=== PATIENT | female | born 1995 | race Caucasian/White ===

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

== ENCOUNTER → 2017-09-07 | Outpatient (CLI) | payer OTHER ==
--- NOTE | 2017-09-03 09:07 | US ---
EXAMINATION TYPE: US gallbladder DATE OF EXAM: 09/03/2017 COMPARISON: NONE CLINICAL HISTORY: R10.84 abd pain. Nausea, abdominal pain. Difficult and limited exam due to overlyin g bowel gas EXAM MEASUREMENTS: Liver Length: 12.5 cm Gallbladder Wall: 0.2 cm CBD: 0.4 cm Right Kidney: 10.0 x 4.6 x 4.5 cm Pancreas: Obscured by bowel gas, visualized portions show no abnormality Liver: wnl Gallbladder: No stones or sludge visualized Evidence for sonographic Serrano's sign: No CBD: wnl as visualized, distal portion is obscured by bowel gas Right Kidney: Limited visualization due to overlying bowel gas. Visualized portions show no hydronep hrosis, no cystic or solid mass. IMPRESSION: 1. No acute process.
--- NOTE | 2017-09-03 13:03 | FL ---
EXAMINATION: Upper GI examination DATE: 09/03/2017 CLINICAL INDICATION: 22 year-old female with abdominal pain and nausea, weakness COMPARISON: None Total Fluoroscopy Time: 1 minute 13 seconds. Fluoroscopy rate was decreased for this patient. Last i mage hold save screens were primarily utilized to further decrease radiation dose. Total images: 31. FINDINGS: The esophagus has a normal course, caliber, motility and mucosa. No hiatal hernia is identified. There is no gastroesophageal reflux identified during Valsalva and positional maneuvers. The stomach and duodenum are free of any persistent filling defect and demonstrate a normal mucosal p attern. IMPRESSION: Normal upper GI examination.
== END | disposition home or self-care (01) ==
LOC: RADUSMAIN 08:30
PROVIDERS: ATTEND Family Medicine
DX: R10.84 Generalized abdominal pain (principal)
CPT/HCPCS: 74240; 76705

== ENCOUNTER 2017-09-11 13:33 | Inpatient (IN) | payer OTHER ==
[2017-09-11] MEDS ORDERED: SODIUM CHLORIDE 0.9% 2,000 ML IV ONE (14:29)
[2017-09-11] MEDS ORDERED: SODIUM CHLORIDE 0.9% 1,000 ML IV STA (14:29)
[2017-09-11] MEDS ORDERED: IOPAMIDOL-300 CONTRAST 30 ML VIAL (ORAL USE) PO PRN (14:31)
[2017-09-11] MEDS ORDERED: RX INFO: IV CONTRAST WAS GIVEN 1 EACH MISC MISCELLANE PRN (14:31)
[2017-09-11 14:41] LABS: Anisocytosis Slight; Basophils # (A) 0.1 k/uL (0-0.2); Basophils % (A) 1 %; Eosinophils # (A) 0.1 k/uL (0-0.7); Eosinophils % (A) 1 %; HCT 42.3 % (34.0-46.0); HGB 12.3 gm/dL (11.4-16.0); Hypochromasia Marked; Lymphocytes % (A) 20 %; MCH 20.4 pg (25.0-35.0); MCHC 29.2 g/dL (31.0-37.0); Mean Platelet Volume 7.9; Microcytosis Marked; Monocytes # (A) 0.7 k/uL (0-1.0); Monocytes % (A) 7 %; Neutrophils # (A) 7.1 k/uL (1.3-7.7); Neutrophils % (A) 70 %; Platelet Count 314 k/uL (150-450); Poikilocytosis Slight; RBC 6.04 m/uL (3.80-5.40); WBC 10.2 k/uL (4.0-11.0)
[2017-09-11 14:53] LABS: ALT 10 U/L (9-52); AST 8 U/L (14-36); Albumin 4.6 g/dL (3.5-5.0); Alkaline Phosphatase 104 U/L (38-126); Amylase 133 U/L (30-110); Blood Urea Nitrogen 8 mg/dL (7-17); Calcium 9.2 mg/dL (8.4-10.2); Chloride 107 mmol/L (98-107); Glucose 362 mg/dL (74-99); Lipase 136 U/L (23-300); Potassium 3.3 mmol/L (3.5-5.1); Sodium 139 mmol/L (137-145); Total Bilirubin 0.3 mg/dL (0.2-1.3); Total Protein 7.5 g/dL (6.3-8.2)
[2017-09-11 14:55] LABS: Partial Thromboplastin Time 25.2 sec (22.0-30.0); Prothrombin Time 9.9 sec (9.0-12.0)
[2017-09-11 14:59] LABS: Anion Gap 25 mmol/L
--- NOTE | 2017-09-11 15:00 | ED ---
Abdominal Pain HPI - General Chief Complaint: Abdominal Pain Stated Complaint: Abd Pain Time Seen by Provider: 09/11/17 14:15 Source: patient, family, RN notes reviewed, old records reviewed Mode of arrival: ambulatory Limitations: no limitations - History of Present Illness Initial Comments: This is a 22-year-old female with a benign past medical history states for the past 3 weeks she has had upper abdominal pain is been burning in nature currently she states is 4/10 in severity nausea without vomiting also she states she's had about a 20 pound weight loss. Time she states she cannot eat is up and drinking fluids very well. She states she has had ultrasound and upper GI which really didn't show anything specific. She was scheduled to have a CT the abdomen and pelvis today but felt very weak and her dad brought her in because of how she was feeling. No fevers chills no sweats no dysuria no hematuria she has had apparently a black colored bowel movements recently. She denies being sexually active. Vaginal discharges. No other modifying symptoms or complaints at this time MD Complaint: abdominal pain, other - Related Data Home Medications Medication Instructions Recorded Confirmed Omeprazole 20 mg PO BID 09/11/17 09/11/17 Allergies Allergy/AdvReac Type Severity Reaction Status Date / Time No Known Allergies Allergy Verified 09/11/17 14:02 Review of Systems ROS Statement: Those systems with pertinent positive or pertinent negative responses have been documented in the HPI. ROS Other: All systems not noted in ROS Statement are negative. Past Medical History Past Medical History: No Reported History History of Any Multi-Drug Resistant Organisms: None Reported Past Surgical History: No Surgical Hx Reported Past Psychological History: Anxiety, Depression Smoking Status: Never smoker Past Alcohol Use History: None Reported Past Drug Use History: None Reported General Exam - General Exam Comments Initial Comments: This is a well-developed well-nourished awake alert oriented 3 female Limitations: no limitations General appearance: alert, lethargic Head exam: Present: atraumatic, normocephalic, normal inspection Eye exam: Present: normal appearance, PERRL, EOMI. Absent: scleral icterus, conjunctival injection, periorbital swelling ENT exam: Present: mucous membranes dry Neck exam: Present: normal inspection. Absent: tenderness, meningismus, lymphadenopathy Respiratory exam: Present: normal lung sounds bilaterally. Absent: respiratory distress, wheezes, rales, rhonchi, stridor Cardiovascular Exam: Present: normal rhythm, tachycardia, normal heart sounds. Absent: systolic murmur, diastolic murmur, rubs, gallop, clicks GI/Abdominal exam: Present: soft, normal bowel sounds. Absent: distended, tenderness, guarding, rebound, rigid Extremities exam: Present: normal inspection, full ROM, normal capillary refill. Absent: tenderness, pedal edema, joint swelling, calf tenderness Back exam: Present: normal inspection Neurological exam: Present: alert, oriented X3, CN II-XII intact Psychiatric exam: Present: normal mood, flat affect Skin exam: Present: warm, dry, intact, pallor. Absent: rash Course Vital Signs 09/11/17 13:54 Temperature 98.8 F Pulse Rate 120 H Respiratory 18 Rate Blood Pressure 138/85 O2 Sat by Pulse 98 Oximetry - Reevaluation(s) Reevaluation #1: 09/11/17 15:58 Reevaluation the patient reveals no improvement thus far I did perform a rectal exam with a female nurse, Jair, lori no gross blood Hemoccult pending Reevaluation #2: 09/11/17 15:59 I did discuss the findings with the patient and her dad regarding the initial findings on lab work does appear the patient is a new-onset diabetic she does have evidence of DKA. She will require admission CAT scan currently is pending. Medical Decision Making - Lab Data Result diagrams: 09/11/17 14:31 09/11/17 14:31 Lab Results 09/11/17 09/11/17 09/11/17 Range/Units 14:31 14:31 14:31 WBC 10.2 (4.0-11.0) k/uL RBC 6.04 H (3.80-5.40) m/uL Hgb 12.3 (11.4-16.0) gm/dL Hct 42.3 (34.0-46.0) % MCV 70.0 L (80.0-100.0) fL MCH 20.4 L (25.0-35.0) pg MCHC 29.2 L (31.0-37.0) g/dL RDW 18.0 H (11.5-15.5) % Plt Count 314 (150-450) k/uL Neutrophils % 70 % Lymphocytes % 20 % Monocytes % 7 % Eosinophils % 1 % Basophils % 1 % Neutrophils # 7.1 (1.3-7.7) k/uL Lymphocytes # 2.0 (1.0-4.8) k/uL Monocytes # 0.7 (0-1.0) k/uL Eosinophils # 0.1 (0-0.7) k/uL Basophils # 0.1 (0-0.2) k/uL Hypochromasia Marked Poikilocytosis Slight Anisocytosis Slight Microcytosis Marked PT (9.0-12.0) sec INR (<1.2) APTT (22.0-30.0) sec Sodium 139 (137-145) mmol/L Potassium 3.3 L (3.5-5.1) mmol/L Chloride 107 (98-107) mmol/L Carbon Dioxide 7 L* (22-30) mmol/L Anion Gap 25 mmol/L BUN 8 (7-17) mg/dL Creatinine 0.50 L (0.52-1.04) mg/dL Est GFR (CKD-EPI)AfAm >90 (>60 ml/min/1.73 sqM) Est GFR (CKD-EPI)NonAf >90 (>60 ml/min/1.73 sqM) Glucose 362 H (74-99) mg/dL Calcium 9.2 (8.4-10.2) mg/dL Magnesium (1.6-2.3) mg/dL Total Bilirubin 0.3 (0.2-1.3) mg/dL AST 8 L (14-36) U/L ALT 10 (9-52) U/L Alkaline Phosphatase 104 (38-126) U/L Total Creatine Kinase <20 L (30-135) U/L CK-MB (CK-2) 0.4 (0.0-2.4) ng/mL CK-MB (CK-2) Rel Index Total Protein 7.5 (6.3-8.2) g/dL Albumin 4.6 (3.5-5.0) g/dL Amylase 133 H (30-110) U/L Lipase 136 (23-300) U/L Urine Color Urine Appearance (Clear) Urine pH (5.0-8.0) Ur Specific [place] (1.001-1.035) Urine Protein (Negative) Urine Glucose (UA) (Negative) Urine Ketones (Negative) Urine Blood (Negative) Urine Nitrite (Negative) Urine Bilirubin (Negative) Urine Urobilinogen (<2.0) mg/dL Ur Leukocyte Esterase (Negative) Urine RBC (0-5) /hpf Urine WBC (0-5) /hpf Ur Squamous Epith Cells (0-4) /hpf Granular Casts (0) /lpf Urine Mucus (None) /hpf Urine HCG, Qual (Not Detectd) Stool Occult Blood (Negative) Acetone, Qual (Negative) Blood Type Blood Type Recheck Antibody Screen Spec Expiration Date 09/11/17 09/11/17 09/11/17 Range/Units 14:31 14:31 14:31 WBC (4.0-11.0) k/uL RBC (3.80-5.40) m/uL Hgb (11.4-16.0) gm/dL Hct (34.0-46.0) % MCV (80.0-100.0) fL MCH (25.0-35.0) pg MCHC (31.0-37.0) g/dL RDW (11.5-15.5) % Plt Count (150-450) k/uL Neutrophils % % Lymphocytes % % Monocytes % % Eosinophils % % Basophils % % Neutrophils # (1.3-7.7) k/uL Lymphocytes # (1.0-4.8) k/uL Monocytes # (0-1.0) k/uL Eosinophils # (0-0.7) k/uL Basophils # (0-0.2) k/uL Hypochromasia Poikilocytosis Anisocytosis Microcytosis PT 9.9 (9.0-12.0) sec INR 1.0 (<1.2) APTT 25.2 (22.0-30.0) sec Sodium (137-145) mmol/L Potassium (3.5-5.1) mmol/L Chloride (98-107) mmol/L Carbon Dioxide (22-30) mmol/L Anion Gap mmol/L BUN (7-17) mg/dL Creatinine (0.52-1.04) mg/dL Est GFR (CKD-EPI)AfAm (>60 ml/min/1.73 sqM) Est GFR (CKD-EPI)NonAf (>60 ml/min/1.73 sqM) Glucose (74-99) mg/dL Calcium (8.4-10.2) mg/dL Magnesium (1.6-2.3) mg/dL Total Bilirubin (0.2-1.3) mg/dL AST (14-36) U/L ALT (9-52) U/L Alkaline Phosphatase (38-126) U/L Total Creatine Kinase (30-135) U/L CK-MB (CK-2) (0.0-2.4) ng/mL CK-MB (CK-2) Rel Index Total Protein (6.3-8.2) g/dL Albumin (3.5-5.0) g/dL Amylase (30-110) U/L Lipase (23-300) U/L Urine Color Urine Appearance (Clear) Urine pH (5.0-8.0) Ur Specific [place] (1.001-1.035) Urine Protein (Negative) Urine Glucose (UA) (Negative) Urine Ketones (Negative) Urine Blood (Negative) Urine Nitrite (Negative) Urine Bilirubin (Negative) Urine Urobilinogen (<2.0) mg/dL Ur Leukocyte Esterase (Negative) Urine RBC (0-5) /hpf Urine WBC (0-5) /hpf Ur Squamous Epith Cells (0-4) /hpf Granular Casts (0) /lpf Urine Mucus (None) /hpf Urine HCG, Qual (Not Detectd) Stool Occult Blood (Negative) Acetone, Qual Positive (Negative) Blood Type O Positive Blood Type Recheck No Antibody Screen NEGATIVE Spec Expiration Date 09/14/2017 - 233009/11/17 09/11/17 09/11/17 Range/Units 14:31 15:15 15:15 WBC (4.0-11.0) k/uL RBC (3.80-5.40) m/uL Hgb (11.4-16.0) gm/dL Hct (34.0-46.0) % MCV (80.0-100.0) fL MCH (25.0-35.0) pg MCHC (31.0-37.0) g/dL RDW (11.5-15.5) % Plt Count (150-450) k/uL Neutrophils % % Lymphocytes % % Monocytes % % Eosinophils % % Basophils % % Neutrophils # (1.3-7.7) k/uL Lymphocytes # (1.0-4.8) k/uL Monocytes # (0-1.0) k/uL Eosinophils # (0-0.7) k/uL Basophils # (0-0.2) k/uL Hypochromasia Poikilocytosis Anisocytosis Microcytosis PT (9.0-12.0) sec INR (<1.2) APTT (22.0-30.0) sec Sodium (137-145) mmol/L Potassium (3.5-5.1) mmol/L Chloride (98-107) mmol/L Carbon Dioxide (22-30) mmol/L Anion Gap mmol/L BUN (7-17) mg/dL Creatinine (0.52-1.04) mg/dL Est GFR (CKD-EPI)AfAm (>60 ml/min/1.73 sqM) Est GFR (CKD-EPI)NonAf (>60 ml/min/1.73 sqM) Glucose (74-99) mg/dL Calcium (8.4-10.2) mg/dL Magnesium 1.9 (1.6-2.3) mg/dL Total Bilirubin (0.2-1.3) mg/dL AST (14-36) U/L ALT (9-52) U/L Alkaline Phosphatase (38-126) U/L Total Creatine Kinase (30-135) U/L CK-MB (CK-2) (0.0-2.4) ng/mL CK-MB (CK-2) Rel Index Total Protein (6.3-8.2) g/dL Albumin (3.5-5.0) g/dL Amylase (30-110) U/L Lipase (23-300) U/L Urine Color Light Yellow Urine Appearance Clear (Clear) Urine pH 5.5 (5.0-8.0) Ur Specific [place] 1.026 (1.001-1.035) Urine Protein 1+ H (Negative) Urine Glucose (UA) 4+ H (Negative) Urine Ketones 4+ H (Negative) Urine Blood Trace H (Negative) Urine Nitrite Negative (Negative) Urine Bilirubin Negative (Negative) Urine Urobilinogen <2.0 (<2.0) mg/dL Ur Leukocyte Esterase Negative (Negative) Urine RBC 4 (0-5) /hpf Urine WBC 7 H (0-5) /hpf Ur Squamous Epith Cells <1 (0-4) /hpf Granular Casts 20 (0) /lpf Urine Mucus Rare H (None) /hpf Urine HCG, Qual Not Detected (Not Detectd) Stool Occult Blood (Negative) Acetone, Qual (Negative) Blood Type Blood Type Recheck Antibody Screen Spec Expiration Date 09/11/17 Range/Units 15:53 WBC (4.0-11.0) k/uL RBC (3.80-5.40) m/uL Hgb (11.4-16.0) gm/dL Hct (34.0-46.0) % MCV (80.0-100.0) fL MCH (25.0-35.0) pg MCHC (31.0-37.0) g/dL RDW (11.5-15.5) % Plt Count (150-450) k/uL Neutrophils % % Lymphocytes % % Monocytes % % Eosinophils % % Basophils % % Neutrophils # (1.3-7.7) k/uL Lymphocytes # (1.0-4.8) k/uL Monocytes # (0-1.0) k/uL Eosinophils # (0-0.7) k/uL Basophils # (0-0.2) k/uL Hypochromasia Poikilocytosis Anisocytosis Microcytosis PT (9.0-12.0) sec INR (<1.2) APTT (22.0-30.0) sec Sodium (137-145) mmol/L Potassium (3.5-5.1) mmol/L Chloride (98-107) mmol/L Carbon Dioxide (22-30) mmol/L Anion Gap mmol/L BUN (7-17) mg/dL Creatinine (0.52-1.04) mg/dL Est GFR (CKD-EPI)AfAm (>60 ml/min/1.73 sqM) Est GFR (CKD-EPI)NonAf (>60 ml/min/1.73 sqM) Glucose (74-99) mg/dL Calcium (8.4-10.2) mg/dL Magnesium (1.6-2.3) mg/dL Total Bilirubin (0.2-1.3) mg/dL AST (14-36) U/L ALT (9-52) U/L Alkaline Phosphatase (38-126) U/L Total Creatine Kinase (30-135) U/L CK-MB (CK-2) (0.0-2.4) ng/mL CK-MB (CK-2) Rel Index Total Protein (6.3-8.2) g/dL Albumin (3.5-5.0) g/dL Amylase (30-110) U/L Lipase (23-300) U/L Urine Color Urine Appearance (Clear) Urine pH (5.0-8.0) Ur Specific [place] (1.001-1.035) Urine Protein (Negative) Urine Glucose (UA) (Negative) Urine Ketones (Negative) Urine Blood (Negative) Urine Nitrite (Negative) Urine Bilirubin (Negative) Urine Urobilinogen (<2.0) mg/dL Ur Leukocyte Esterase (Negative) Urine RBC (0-5) /hpf Urine WBC (0-5) /hpf Ur Squamous Epith Cells (0-4) /hpf Granular Casts (0) /lpf Urine Mucus (None) /hpf Urine HCG, Qual (Not Detectd) Stool Occult Blood Negative (Negative) Acetone, Qual (Negative) Blood Type Blood Type Recheck Antibody Screen Spec Expiration Date Critical Care Time Critical Care Time: Yes Critical Care Time: 32 minutes of critical care time which includes the initial history physical labs x-rays several reevaluation the patient. Review of old charting. Discussion with the patient regarding the findings. Discussed with the admitting physician admission orders and documentation of the above Disposition Clinical Impression: Diabetic ketoacidosis, Abdominal pain, Dehydration, Hypokalemia Disposition: ADMITTED IP TO THIS [facility] Condition: Stable Referrals: Bo Talamantes MD [Primary Care Provider] - 1-2 days
[2017-09-11 15:02] LABS: Carbon Dioxide 7 mmol/L (22-30)
[2017-09-11 15:19] LABS: Creatine Kinase <20 U/L (30-135)
[2017-09-11 15:28] LABS: Creatine Kinase MB 0.4 ng/mL (0.0-2.4)
[2017-09-11 15:38] LABS: Appearance,Urine Clear (Clear); Bilirubin,Urine Negative (Negative); Blood,Urine Trace (Negative); Color,Urine Light Yellow; Glucose,Urine (UA) 4+ (Negative); Granular Casts,Urine 20 /lpf (0); Leukocyte Esterase,Urine Negative (Negative); Mucus,Urine Rare /hpf; Nitrite,Urine Negative (Negative); PH, Urine 5.5 (5.0-8.0); Protein,Urine 1+ (Negative); RBC,Urine 4 /hpf (0-5); Specific Gravity,Urine 1.026 (1.001-1.035); Squamous Epithelial Cell,Urine <1 /hpf (0-4); Urobilinogen,Urine <2.0 mg/dL (<2.0); WBC,Urine 7 /hpf (0-5)
[2017-09-11] MEDS ORDERED: Magnesium Replacement Protocol 1 EACH MISC MISCELLANE PRN (15:45)
[2017-09-11] MEDS ORDERED: Potassium Replacement Protocol 1 EACH MISC MISCELLANE PRN ×2 (15:45→16:49)
[2017-09-11] MEDS ORDERED: INSULIN REGULAR BOLUS (FROM DRIP BAG) IV ONE (15:45)
[2017-09-11 15:55] LABS: Ketones,Urine 4+ (Negative)
[2017-09-11] MEDS ORDERED: NALOXONE 0.4 MG/ML 1 ML VIAL IV PRN (16:04)
[2017-09-11] MEDS: SODIUM CHLORIDE 0.9% 1,000 ML IV SCH ×2 (16:43→22:12)
[2017-09-11] MEDS: INSULIN REGULAR 100 UNIT in SODIUM CHLORIDE 0.9% 100 ML IV SCH (16:44)
[2017-09-11 16:46] LABS: Glucose,Whole Blood 288 mg/dL (75-99)
[2017-09-11 17:36] LABS: Glucose,Whole Blood 237 mg/dL (75-99)
[2017-09-11 18:54] LABS: Glucose,Whole Blood 202 mg/dL (75-99)
[2017-09-11 19:59] LABS: Glucose,Whole Blood 185 mg/dL (75-99)
[2017-09-11 20:07] LABS: Anion Gap 18 mmol/L; Blood Urea Nitrogen 6 mg/dL (7-17); Calcium 8.2 mg/dL (8.4-10.2); Chloride 112 mmol/L (98-107); Glucose 179 mg/dL (74-99); Sodium 138 mmol/L (137-145)
[2017-09-11] MEDS: D5-0.45% NACL WITH KCL 20MEQ/L 1,000 ML IV SCH (20:11)
[2017-09-11 20:12] LABS: Carbon Dioxide 8 mmol/L (22-30); Potassium 2.3 mmol/L (3.5-5.1)
[2017-09-11] MEDS: POTASSIUM CHLORIDE ER 20 MEQ TAB.ER PO SCH ×2 (20:12→21:09)
[2017-09-11 20:13] LABS: Phosphorus 1.2 mg/dL (2.5-4.5)
[2017-09-11] MEDS ORDERED: Phosphorus Replacement Protoco 1 EACH MISC MISCELLANE PRN (20:34)
[2017-09-11 20:45] LABS: Glucose,Whole Blood 192 mg/dL (75-99)
[2017-09-11] MEDS ORDERED: SODIUM BICARB 8.4% 50 ML SYR (1 MEQ/ML) IV ONE (20:45)
--- NOTE | 2017-09-11 20:48 | CT ---
EXAMINATION TYPE: CT discontinued procedure DATE OF EXAM: 09/11/2017 COMPARISON: NONE HISTORY: Pain Automated exposure control for dose reduction was used. FINDINGS: Following scanogram the radiologist canceled procedure due to retained barium. IMPRESSION: DISCONTINUED PROCEDURE
[2017-09-11] MEDS: PANTOPRAZOLE 40 MG/10 ML VIAL IVP SCH (21:10)
[2017-09-11 21:47] LABS: Glucose,Whole Blood 211 mg/dL (75-99)
[2017-09-11] MEDS: POTASSIUM PHOSPHATE 10 MMOL in SODIUM CHLORIDE 0.9% 250 ML IV SCH (22:07)
[2017-09-11 22:47] LABS: Glucose,Whole Blood 211 mg/dL (75-99)
[2017-09-12 00:01] LABS: Glucose,Whole Blood 205 mg/dL (75-99)
[2017-09-12 00:27] LABS: Anion Gap 15 mmol/L; Blood Urea Nitrogen 6 mg/dL (7-17); Carbon Dioxide 14 mmol/L (22-30); Chloride 109 mmol/L (98-107); Glucose 181 mg/dL (74-99); Sodium 138 mmol/L (137-145)
[2017-09-12 00:31] LABS: Potassium 2.7 mmol/L (3.5-5.1)
[2017-09-12 00:45] LABS: Glucose,Whole Blood 198 mg/dL (75-99)
[2017-09-12] MEDS: POTASSIUM CHLORIDE ER 20 MEQ TAB.ER PO SCH ×7 (01:05→20:51)
[2017-09-12 01:35] LABS: Glucose,Whole Blood 186 mg/dL (75-99)
[2017-09-12] MEDS: POTASSIUM PHOSPHATE 10 MMOL in SODIUM CHLORIDE 0.9% 250 ML IV SCH ×5 (02:06→14:33)
[2017-09-12] MEDS: D5-0.45% NACL WITH KCL 20MEQ/L 1,000 ML IV SCH ×4 (02:53→23:57)
[2017-09-12 03:00] LABS: Glucose,Whole Blood 176 mg/dL (75-99)
[2017-09-12] MEDS: INSULIN REGULAR 100 UNIT in SODIUM CHLORIDE 0.9% 100 ML IV SCH (03:11)
[2017-09-12 03:35] LABS: Glucose,Whole Blood 162 mg/dL (75-99)
[2017-09-12 04:40] LABS: Glucose,Whole Blood 158 mg/dL (75-99)
[2017-09-12 04:55] LABS: Anion Gap 12 mmol/L; Blood Urea Nitrogen 5 mg/dL (7-17); Calcium 8.3 mg/dL (8.4-10.2); Carbon Dioxide 17 mmol/L (22-30); Chloride 110 mmol/L (98-107); Glucose 145 mg/dL (74-99); Sodium 139 mmol/L (137-145)
[2017-09-12 04:57] LABS: Potassium 3.1 mmol/L (3.5-5.1)
[2017-09-12 05:49] LABS: Glucose,Whole Blood 145 mg/dL (75-99)
[2017-09-12 06:42] LABS: Glucose,Whole Blood 134 mg/dL (75-99)
[2017-09-12 07:55] LABS: Glucose,Whole Blood 149 mg/dL (75-99)
[2017-09-12] MEDS: PANTOPRAZOLE 40 MG/10 ML VIAL IVP SCH (08:11)
[2017-09-12 08:32] LABS: Anion Gap 11 mmol/L; Blood Urea Nitrogen 4 mg/dL (7-17); Calcium 8.6 mg/dL (8.4-10.2); Carbon Dioxide 17 mmol/L (22-30); Chloride 109 mmol/L (98-107); Glucose 140 mg/dL (74-99); Potassium 3.5 mmol/L (3.5-5.1); Sodium 137 mmol/L (137-145)
[2017-09-12 09:45] LABS: Glucose,Whole Blood 306 mg/dL (75-99)
[2017-09-12 10:22] VITALS: BMI 26.4
[2017-09-12 10:40] LABS: Glucose,Whole Blood 317 mg/dL (75-99)
[2017-09-12] MEDS ORDERED: Phosphorus Replacement Protoco 1 EACH MISC MISCELLANE PRN (10:50)
[2017-09-12 11:33] LABS: Glucose,Whole Blood 308 mg/dL (75-99)
[2017-09-12 12:48] LABS: Glucose,Whole Blood 322 mg/dL (75-99)
[2017-09-12 13:51] LABS: Glucose,Whole Blood 306 mg/dL (75-99)
--- NOTE | 2017-09-12 14:05 | PN ---
PROGRESS NOTE CHIEF COMPLAINT: DKA. HISTORY OF PRESENT ILLNESS: This lady is doing better and feeling better. Abdominal pain is gone. PHYSICAL EXAM: CHEST: Clear. The cardiac exam is normal. The abdomen is soft, nontender. IMPRESSION: 1. Abdominal pain-resolved. 2. Diabetic ketoacidosis. 3. New onset diabetes mellitus. PLAN: 1. Treat low phosphorus again. 2. Diabetic education. 3. Set up program for intermediate and long-acting insulin. MMODL / IJN: [id number] /
--- NOTE | 2017-09-12 14:08 | HP ---
HISTORY AND PHYSICAL CHIEF COMPLAINT: Abdominal pain. HISTORY OF PRESENT ILLNESS: This lady was seen several days ago in the office and had been being worked up for epigastric pain without any obvious etiology. She has also had a history of ADHD. She started to develop more discomfort and came to the emergency room. She was found to have elevated blood sugar at 362 with 4+ ketones. CO2 was down to 7. She had no nausea vomiting. Amylase and lipase were normal. This is a new onset of diabetes. REVIEW OF SYSTEMS: She has had no significant headaches, blurry vision, shortness of breath, cough, hemoptysis, murmurs, rheumatic fever, vomiting, hematemesis, melena, hematochezia, jaundice, hematuria, renal disease, diabetes, etc. Past medical history, family history, personal and social histories reveal that she is only on Prilosec. She does have a history of asthma. She does not smoke. She does not drink. PHYSICAL EXAMINATION: Blood pressure is 98/78 with a pulse of 108, respirations of 35 and she is afebrile. In general she appeared well developed, well nourished, no acute distress. Skin color is normal. Skin is warm, dry. Lymph nodes not enlarged. Head, ears, eyes, nose, mouth, and throat were normal and mucous membranes are dry. Chest is clear to auscultation and percussion and cardiac exam demonstrated sinus tachycardia with no murmurs or extra sounds. Abdomen is soft, nontender without visceromegaly or masses. Bowel sounds present. Extremities are normal. Neurologically she is intact. She is admitted to the hospital with diagnoses: 1. New onset type 1 diabetes mellitus. 2. Epigastric pain, etiology unknown. 3. Metabolic acidosis. PLAN: 1. Bed rest. 2. IV fluids. 3. Correct hypokalemia. 4. Correct hypophosphatemia. 5. Diabetic teaching. 6. Insulin management until she is stable and can be discharged. MMODL / IJN: [id number] /
[2017-09-12] MEDS: INSULIN ASPART 100 UNIT/ML 1 ML 10 ML VIAL SQ SCH ×2 (14:26→16:56)
[2017-09-12 14:50] LABS: Glucose,Whole Blood 314 mg/dL (75-99)
[2017-09-12 15:44] LABS: Glucose,Whole Blood 348 mg/dL (75-99)
[2017-09-12 16:39] LABS: Glucose,Whole Blood 313 mg/dL (75-99)
[2017-09-12] MEDS: PANTOPRAZOLE 40 MG TABLET PO SCH (16:56)
[2017-09-12 17:02] LABS: Anion Gap 9 mmol/L; Blood Urea Nitrogen 3 mg/dL (7-17); Calcium 8.4 mg/dL (8.4-10.2); Carbon Dioxide 19 mmol/L (22-30); Chloride 107 mmol/L (98-107); Glucose 288 mg/dL (74-99); Magnesium 1.5 mg/dL (1.6-2.3); Phosphorus 2.6 mg/dL (2.5-4.5); Potassium 3.3 mmol/L (3.5-5.1); Sodium 135 mmol/L (137-145)
[2017-09-12 18:26] LABS: Glucose,Whole Blood 267 mg/dL (75-99)
[2017-09-12] MEDS ORDERED: Potassium Replacement Protocol 1 EACH MISC MISCELLANE PRN (18:44)
[2017-09-12] MEDS ORDERED: Magnesium Replacement Protocol 1 EACH MISC MISCELLANE PRN (18:45)
[2017-09-12] MEDS ORDERED: POTASSIUM CHLORIDE 10 MEQ in WATER FOR INJECTION 1 100ML.BAG IVPB SCH (19:00)
[2017-09-12 19:09] LABS: Glucose,Whole Blood 242 mg/dL (75-99)
[2017-09-12] MEDS: MAGNESIUM SULFATE-D5W PMX 1 GM in DEXTROSE/WATER 1 100ML.BAG IVPB SCH ×2 (19:34→20:51)
[2017-09-12] MEDS: INSULIN DETEMIR 100 UNIT/ML 10 ML VIAL SQ SCH (20:51)
[2017-09-12 20:58] LABS: Glucose,Whole Blood 199 mg/dL (75-99)
[2017-09-12 21:03] LABS: Glucose,Whole Blood 184 mg/dL (75-99)
[2017-09-12 22:26] LABS: Glucose,Whole Blood 148 mg/dL (75-99)
[2017-09-12 23:15] LABS: Glucose,Whole Blood 121 mg/dL (75-99)
[2017-09-13] MEDS: POTASSIUM CHLORIDE ER 20 MEQ TAB.ER PO SCH ×2 (00:23→01:17)
[2017-09-13 02:08] LABS: Glucose,Whole Blood 172 mg/dL (75-99)
[2017-09-13 06:07] LABS: Glucose,Whole Blood 131 mg/dL (75-99)
[2017-09-13 06:52] LABS: Anion Gap 12 mmol/L; Blood Urea Nitrogen 3 mg/dL (7-17); Calcium 8.9 mg/dL (8.4-10.2); Carbon Dioxide 24 mmol/L (22-30); Chloride 107 mmol/L (98-107); Glucose 133 mg/dL (74-99); Magnesium 2.2 mg/dL (1.6-2.3); Potassium 3.9 mmol/L (3.5-5.1); Sodium 143 mmol/L (137-145)
[2017-09-13] MEDS: PANTOPRAZOLE 40 MG TABLET PO SCH ×2 (06:57→17:03)
[2017-09-13] MEDS: INSULIN ASPART 100 UNIT/ML 1 ML 10 ML VIAL SQ SCH ×3 (07:11→17:01)
[2017-09-13 11:40] LABS: Glucose,Whole Blood 159 mg/dL (75-99)
[2017-09-13 16:37] LABS: Glucose,Whole Blood 197 mg/dL (75-99)
[2017-09-13 21:08] LABS: Glucose,Whole Blood 246 mg/dL (75-99)
[2017-09-13] MEDS: INSULIN DETEMIR 100 UNIT/ML 10 ML VIAL SQ SCH (21:44)
[2017-09-14 03:16] LABS: Glucose,Whole Blood 326 mg/dL (75-99)
[2017-09-14] MEDS: INSULIN ASPART 100 UNIT/ML 1 ML 10 ML VIAL SQ SCH ×5 (03:42→12:15)
[2017-09-14 06:05] LABS: Glucose,Whole Blood 176 mg/dL (75-99)
[2017-09-14 06:14] LABS: Anion Gap 9 mmol/L; Blood Urea Nitrogen 5 mg/dL (7-17); Carbon Dioxide 30 mmol/L (22-30); Chloride 105 mmol/L (98-107); Glucose 198 mg/dL (74-99); Phosphorus 3.1 mg/dL (2.5-4.5); Potassium 4.3 mmol/L (3.5-5.1); Sodium 144 mmol/L (137-145)
[2017-09-14] MEDS: PANTOPRAZOLE 40 MG TABLET PO SCH (07:07)
[2017-09-14 08:25] VITALS: RESP 16
[2017-09-14 11:48] VITALS: BP 105/64; PULSE 75; TEMP 97.7
[2017-09-14 12:06] LABS: Glucose,Whole Blood 203 mg/dL (75-99)
--- NOTE | 2017-09-14 18:01 | PN ---
PROGRESS NOTE DATE OF SERVICE: 09/13/17 CHIEF COMPLAINT: Newly diagnosed diabetes mellitus and DKA. HISTORY OF PRESENT ILLNESS: This lady is doing well and sugars coming down. She is handling the insulin will probably go home tomorrow. PHYSICAL EXAM: CHEST: Clear. Cardiac exam is normal. Abdomen is soft, nontender and hydration is improved. IMPRESSION: 1. Diabetic ketoacidosis. 2. Newly diagnosed insulin-dependent diabetes mellitus. PLAN: Probably home tomorrow. MMODL / IJN: [id number] /
--- NOTE | 2017-09-14 19:16 | DS ---
DISCHARGE SUMMARY CHIEF COMPLAINT: Diabetic ketoacidosis. HISTORY OF PRESENT ILLNESS AND PHYSICAL EXAM: Details of this lady's history and physical can be found in the initial workup. LABORATORY STUDIES: While she was in the hospital she had laboratory studies, details of which can be found in the laboratory section of her chart. COURSE IN THE HOSPITAL: After admission, she was placed on bedrest, started on intravenous fluids and IV insulin drip. As anion gap closed, hydration improved and blood sugars were brought down. She was started on diabetic teaching and she was stable enough it was felt that she could go home on the . She will follow up in a few days. We will monitor her blood sugars closely and adjust her insulin further. FINAL DIAGNOSES: 1. Newly diagnosed type 1 insulin dependent diabetes mellitus. 2. Ketoacidosis. OPERATIONS: None. CONSULTATIONS: None. She is improved. CANDIE / ADORE: [id number] /
== END 2017-09-14 15:16 | disposition home or self-care (01) | DRG 639 ==
LOC: EC 13:33 → 6SEL 16:04
PROVIDERS: ADMIT Family Medicine; ATTEND Family Medicine
DX: E10.10 Type 1 diabetes mellitus with ketoacidosis without coma (principal); E83.39 Other disorders of phosphorus metabolism; F90.9 Attention-deficit hyperactivity disorder, unspecified type; E87.6 Hypokalemia; R10.13 Epigastric pain; R00.0 Tachycardia, unspecified; J45.909 Unspecified asthma, uncomplicated; E86.0 Dehydration; Z79.899 Other long term (current) drug therapy
CPT/HCPCS: 36415; 76380; 80048; 80053; 81001; 81025; 82009; 82150; 82272; 82550; 82553; 83036; 83690; 83735; 84100; 84132; 85025; 85610; 85730; 86850; 86900; 86901; 96360; 99291

== ENCOUNTER 2019-01-12 12:08 | Emergency (ER) | payer OTHER ==
[2019-01-12] MEDS ORDERED: LIDOCAINE/EPINEPHR/TETRACAINE 5 ML BOTTLE TOPICAL ONE (12:27)
--- NOTE | 2019-01-12 12:35 | ED ---
Skin/Abscess/FB HPI - General Chief complaint: Skin/Abscess/Foreign Body Stated complaint: Abscess Time Seen by Provider: 01/12/19 12:18 Source: patient, family, RN notes reviewed, old records reviewed Mode of arrival: ambulatory - History of Present Illness Initial comments: Patient is a 23-year-old female, type I diabetic. She presents with an abscess over her lower back and buttocks for the past 3 weeks. Patient reports that his escape continue to get better. Patient reports that she had her father poke it and drain it. She reports it continues to get worse. - Related Data Home Medications Medication Instructions Recorded Confirmed Insulin Lispro [Admelog] See Protocol SQ CONTINUOUS MDD 100 01/12/19 01/12/19 UNITS metFORMIN HCL 1,000 mg PO BID-W/MEALS 01/12/19 01/12/19 Previous Rx's Medication Instructions Recorded HYDROcodone/APAP 5-325MG [[place] 1 tab PO Q6HR PRN 3 Days #12 tab 01/12/19 5-325] Sulfamethox-Tmp 800-160Mg [Bactrim 2 tab PO Q12HR #40 tab 01/12/19 DS 800-160 mg] Allergies Allergy/AdvReac Type Severity Reaction Status Date / Time No Known Allergies Allergy Verified 01/12/19 12:50 Review of Systems ROS Statement: Those systems with pertinent positive or pertinent negative responses have been documented in the HPI. ROS Other: All systems not noted in ROS Statement are negative. Past Medical History Past Medical History: Diabetes Mellitus Additional Past Medical History / Comment(s): anxiety, panic attacks. per pt's father: when pt younger till about age 15 occ episodes of almost passing out if she moved postions to quickly", lt hand-steam burn from work History of Any Multi-Drug Resistant Organisms: None Reported Past Surgical History: No Surgical Hx Reported Past Anesthesia/Blood Transfusion Reactions: No Reported Reaction Additional Past Anesthesia/Blood Transfusion Reaction / Comment(s): never had general aa Past Psychological History: Anxiety, Depression, Panic Disorder, PTSD Smoking Status: Never smoker Past Alcohol Use History: None Reported Past Drug Use History: None Reported - Past Family History Mother Additional Family Medical History / Comment(s): depression Father Family Medical History: Asthma, COPD, Coronary Artery Disease (CAD), Myocardial Infarction ([place]) Additional Family Medical History / Comment(s): x2 mi's, heart stents General Exam - General Exam Comments Initial Comments: 23 year old female, no distress. General appearance: alert, in no apparent distress Head exam: Present: atraumatic, normocephalic, normal inspection Eye exam: Present: normal appearance, PERRL, EOMI. Absent: scleral icterus, conjunctival injection, periorbital swelling ENT exam: Present: normal exam, mucous membranes moist Neck exam: Present: normal inspection. Absent: tenderness, meningismus, lymphadenopathy Respiratory exam: Present: normal lung sounds bilaterally. Absent: respiratory distress, wheezes, rales, rhonchi, stridor Cardiovascular Exam: Present: regular rate, normal rhythm, normal heart sounds. Absent: systolic murmur, diastolic murmur, rubs, gallop, clicks GI/Abdominal exam: Present: soft, normal bowel sounds. Absent: distended, tenderness, guarding, rebound, rigid Extremities exam: Present: normal inspection, full ROM, normal capillary refill, other (abscess over tailbone). Absent: tenderness, pedal edema, joint swelling, calf tenderness Back exam: Present: normal inspection Neurological exam: Present: alert, oriented X3, CN II-XII intact Psychiatric exam: Present: normal affect, normal mood Skin exam: Present: warm, dry, intact, normal color. Absent: rash Course Vital Signs 01/12/19 01/12/19 12:10 13:30 Temperature 98.7 F 98.2 F Pulse Rate 119 H 98 Respiratory 18 20 Rate Blood Pressure 133/84 135/65 O2 Sat by Pulse 100 99 Oximetry Procedures - Incision & Drainage Site: back (buttocks) Size (cm): 5 Anesthetic Used: lidocaine 1% Amount (mLs): 10 I&D Cleaning Method: Chloroprep Scalpel Used: #11 Needle Aspiration Performed?: Yes Irrigation Performed?: Yes I&D Drainage Obtained: Pus, Blood Packing: Iodoform Culture Obtained?: Yes Patient Tolerated Procedure: well, no complications Medical Decision Making - Medical Decision Making 23 year old female presents today with complaints of pilionidal abscess for 3 weeks. Patient is a diabetic. Sugars have been normal. Incision and drainage was completed. 20cc of puss was removed, packing completed. Patient will be started on Bactrim and pain medication. Disucssed surgeon follow up. Disposition Clinical Impression: Pilonidal abscess Disposition: HOME SELF-CARE Condition: Good Instructions (If sedation given, give patient instructions): Abscess Incision and Drainage (ED), Abscess (ED) Additional Instructions: Patient has a follow-up with surgical nurse practitioner in the next 1-2 days. In 2 days Patient should have the packing removed. Take antibiotics and pain meds as prescribed. Rest, remain hydrated. Prescriptions: Sulfamethox-Tmp 800-160Mg [Bactrim DS 800-160 mg] 2 tab PO Q12HR #40 tab HYDROcodone/APAP 5-325MG [[place] 5-325] 1 tab PO Q6HR PRN 3 Days #12 tab PRN Reason: Pain Is patient prescribed a controlled substance at d/c from ED?: Yes If prescribed controlled substance>3 days was MAPS reviewed?: Prescribed <3 Days If opioid is for acute pain is fill amount 7 days or less?: Yes If Rx opioid, was Start Talking consent form obtained?: Yes Referrals: Bo Talamantes MD [Primary Care Provider] - 1-2 days Fani Toledo MD [STAFF PHYSICIAN] - 1-2 days Time of Disposition: 13:25
[2019-01-12] MEDS ORDERED: LIDOCAINE 1% INJ 10MG/ML (20 ML MDV) SQ ONE (13:03)
[2019-01-12 13:42] VITALS: BP 135/65; PULSE 98; RESP 20; TEMP 98.2
== END 2019-01-12 13:30 | disposition home or self-care (01) ==
LOC: EC 12:08
DX: L05.01 Pilonidal cyst with abscess (principal); E10.628 Type 1 diabetes mellitus with other skin complications; Z79.4 Long term (current) use of insulin
CPT/HCPCS: 87070; 87205; 99283; 10080; J2001; 87077; 87186

== ENCOUNTER 2019-01-13 16:29 | Emergency (ER) | payer OTHER ==
[2019-01-13 16:33] VITALS: BP 111/79; PULSE 98; RESP 20; TEMP 98.4
--- NOTE | 2019-01-13 17:29 | ED ---
General Adult HPI - General Chief complaint: Skin/Abscess/Foreign Body Stated complaint: recheck - wound packing Time Seen by Provider: 01/13/19 16:38 Source: patient, RN notes reviewed, old records reviewed Mode of arrival: ambulatory Limitations: no limitations - History of Present Illness Initial comments: Patient is a 23-year-old female presents today for recheck for a pilonidal abscess and wound. Patient reports that she was seen by provider yesterday and I complete incision and drainage. She's been on Keflex and Bactrim for a day and half. She try to follow up with her PCP to have the wound repacked. She does have an appointment scheduled for Thursday with Dr. Henriquez. Patient was concerned to wait longer to have this wound and redress at that time. - Related Data Home Medications Medication Instructions Recorded Confirmed Insulin Lispro [Admelog] See Protocol SQ CONTINUOUS MDD 100 01/12/19 01/12/19 UNITS metFORMIN HCL 1,000 mg PO BID-W/MEALS 01/12/19 01/12/19 Previous Rx's Medication Instructions Recorded HYDROcodone/APAP 5-325MG [[place] 1 tab PO Q6HR PRN 3 Days #12 tab 01/12/19 5-325] Sulfamethox-Tmp 800-160Mg [Bactrim 2 tab PO Q12HR #40 tab 01/12/19 DS 800-160 mg] Allergies Allergy/AdvReac Type Severity Reaction Status Date / Time No Known Allergies Allergy Verified 01/13/19 16:32 Review of Systems ROS Statement: Those systems with pertinent positive or pertinent negative responses have been documented in the HPI. ROS Other: All systems not noted in ROS Statement are negative. Past Medical History Past Medical History: Diabetes Mellitus Additional Past Medical History / Comment(s): anxiety, panic attacks. per pt's father: when pt younger till about age 15 occ episodes of almost passing out if she moved postions to quickly", lt hand-steam burn from work History of Any Multi-Drug Resistant Organisms: None Reported Past Surgical History: No Surgical Hx Reported Past Anesthesia/Blood Transfusion Reactions: No Reported Reaction Additional Past Anesthesia/Blood Transfusion Reaction / Comment(s): never had general aa Past Psychological History: Anxiety, Depression, Panic Disorder, PTSD Smoking Status: Never smoker Past Alcohol Use History: None Reported Past Drug Use History: None Reported - Past Family History Mother Additional Family Medical History / Comment(s): depression Father Family Medical History: Asthma, COPD, Coronary Artery Disease (CAD), Myocardial Infarction ([place]) Additional Family Medical History / Comment(s): x2 mi's, heart stents General Exam - General Exam Comments Initial Comments: 23-year-old female. No distress. Limitations: no limitations General appearance: alert, in no apparent distress Head exam: Present: atraumatic, normocephalic, normal inspection Eye exam: Present: normal appearance, PERRL, EOMI. Absent: scleral icterus, conjunctival injection, periorbital swelling ENT exam: Present: normal exam, mucous membranes moist Neck exam: Present: normal inspection. Absent: tenderness, meningismus, lymphadenopathy Respiratory exam: Present: normal lung sounds bilaterally. Absent: respiratory distress, wheezes, rales, rhonchi, stridor Cardiovascular Exam: Present: regular rate, normal rhythm, normal heart sounds. Absent: systolic murmur, diastolic murmur, rubs, gallop, clicks GI/Abdominal exam: Present: soft, normal bowel sounds. Absent: distended, tenderness, guarding, rebound, rigid Extremities exam: Present: normal inspection, full ROM, normal capillary refill. Absent: tenderness, pedal edema, joint swelling, calf tenderness Back exam: Present: normal inspection, other (Drain over the tailbone. No significant erythema. There is minimal swelling. ) Neurological exam: Present: alert, oriented X3, CN II-XII intact Psychiatric exam: Present: normal affect, normal mood Skin exam: Present: warm, dry, intact, normal color. Absent: rash Course Vital Signs 01/13/19 16:30 Temperature 98.4 F Pulse Rate 98 Respiratory 20 Rate Blood Pressure 111/79 O2 Sat by Pulse 98 Oximetry Medical Decision Making - Medical Decision Making Patient's a 43-year-old female presents for wound repacking and reevaluation. I removed the iodoform packing from the pilonidal abscess. The area was cleansed and repacking was performed. Patient tolerated procedure well. His physician is hopeless surgeon for repacking. She has an appointment scheduled on Thursday. There is no significant erythema and I discussed that it appears that the wound is healing well. Patient agrees to treatment plan will comply. Return parameters were discussed. Disposition Clinical Impression: Encounter for wound re-check Disposition: HOME SELF-CARE Condition: Good Instructions (If sedation given, give patient instructions): Pilonidal Cyst (ED) Additional Instructions: Follow-up with a surgeon on Thursday. Continue your antibiotics as prescribed. Return to the emergency department if any alarming signs or symptoms occur. Is patient prescribed a controlled substance at d/c from ED?: No Referrals: Bo Talamantes MD [Primary Care Provider] - 1-2 days Time of Disposition: 17:29
== END 2019-01-13 17:30 | disposition home or self-care (01) ==
LOC: EC 16:29
DX: Z48.01 Encounter for change or removal of surgical wound dressing (principal); E11.9 Type 2 diabetes mellitus without complications; Z79.4 Long term (current) use of insulin
CPT/HCPCS: 99283

== ENCOUNTER → 2021-01-16 | Outpatient (CLI) | payer OTHER ==
[2021-01-16 13:36] LABS: Appearance,Urine Cloudy (Clear); Bilirubin,Urine Negative (Negative); Blood,Urine Negative (Negative); Color,Urine Yellow; Glucose,Urine (UA) Negative (Negative); Ketones,Urine 1+ (Negative); Leukocyte Esterase,Urine Large (Negative); Mucus,Urine Many /hpf; Nitrite,Urine Negative (Negative); Protein,Urine 1+ (Negative); RBC,Urine 5 /hpf (0-5); Specific Gravity,Urine 1.032 (1.001-1.035); Squamous Epithelial Cell,Urine 14 /hpf (0-4); Urobilinogen,Urine <2.0 mg/dL (<2.0); WBC,Urine 59 /hpf (0-5)
[2021-01-16 20:31] LABS: Basophils # (A) 0.05 X 10*3/uL (0.00-0.10); Basophils % (A) 0.6 %; Eosinophils # (A) 0.22 X 10*3/uL (0.04-0.35); Eosinophils % (A) 2.8 %; HCT 38.7 % (37.2-46.3); HGB 12.2 g/dL (12.0-15.0); Lymphocytes # (A) 2.02 X 10*3/uL (0.90-5.00); Lymphocytes % (A) 25.6 %; MCH 27.4 pg (27.0-32.0); MCHC 31.5 g/dL (32.0-37.0); MCV 86.8 fL (80.0-97.0); Mean Platelet Volume 11.5 fL (9.5-12.2); Monocytes # (A) 0.63 X 10*3/uL (0.20-1.00); Neutrophils # (A) 4.95 X 10*3/uL (1.80-7.70); Neutrophils % (A) 62.7 %; Platelet Count 336 X 10*3/uL (140-440); RBC 4.46 X 10*6/uL (4.10-5.20); RDW 12.3 % (11.5-14.5); WBC 7.89 X 10*3/uL (4.50-10.00)
[2021-01-16 21:43] LABS: Hemoglobin A1C 6.4 % (4.0-6.0)
[2021-01-16 22:32] LABS: Ferritin 25.4 ng/mL (10.0-291.0)
[2021-01-16 22:33] LABS: % Iron Saturation 37.42 (12.00-45.00); African American GFR (CKD) 141.5 (60.0-200.0); Albumin 4.4 g/dL (3.80-4.90); Albumin/Globulin Ratio 2.1 (1.60-3.17); Anion Gap 10.8 mmol/L (4.00-12.00); BUN/Creat Ratio 27.14 Ratio (12.00-20.00); C Reactive Protein 0.8 mg/dL (0.0-0.8); Calcium 9.1 mg/dL (8.7-10.3); Carbon Dioxide 23.2 mmol/L (21.6-31.8); Chol/HDL Ratio 3.79; Globulin 2.1 g/dL (1.6-3.3); LDL Cholesterol,Calculated 99.8 mg/dL (0.0-131.0); Magnesium 1.6 mg/dL (1.5-2.4); Non-African American GFR(CKD) 122.1 (60.0-200.0); Total Bilirubin 0.8 mg/dL (0.3-1.2); Total Protein 6.5 g/dL (6.2-8.2); VLDL Calculation 20.2 mg/dL (5.00-40.00)
[2021-01-16 23:15] LABS: Erythrocyte Sedimentation Rate 17 mm/Hr (0-20)
== END | disposition home or self-care (01) ==
LOC: LABWHC1 12:32
PROVIDERS: ATTEND Internal Medicine
DX: Z00.00 Encounter for general adult medical examination without abnormal findings (principal); D64.9 Anemia, unspecified; E78.5 Hyperlipidemia, unspecified; E11.65 Type 2 diabetes mellitus with hyperglycemia
CPT/HCPCS: 36415; 80053; 80061; 81001; 82306; 82550; 82728; 83036; 83540; 83550; 83735; 84100; 84443; 85025; 85652; 86140

== ENCOUNTER → 2022-03-10 | Outpatient (CLI) | payer OTHER ==
[2022-03-10 23:41] LABS: Basophils # (A) 0.06 X 10*3/uL (0.00-0.10); Basophils % (A) 0.7 %; Eosinophils # (A) 0.21 X 10*3/uL (0.04-0.35); Eosinophils % (A) 2.5 %; HCT 34.7 % (37.2-46.3); HGB 10.3 g/dL (12.0-15.0); Immature Grans, Automated 0.4 %; Lymphocytes # (A) 2.34 X 10*3/uL (0.90-5.00); Lymphocytes % (A) 27.5 %; MCH 22.4 pg (27.0-32.0); MCHC 29.7 g/dL (32.0-37.0); MCV 75.4 fL (80.0-97.0); Mean Platelet Volume 11.7 fL (9.5-12.2); Monocytes # (A) 0.76 X 10*3/uL (0.20-1.00); Monocytes % (A) 8.9 %; NRBC Per 100 WBC 0 /100 WBCS (0.0-0.0); Neutrophils # (A) 5.11 X 10*3/uL (1.80-7.70); Platelet Count 402 X 10*3/uL (140-440); RDW 15.2 % (11.5-14.5); WBC 8.51 X 10*3/uL (4.50-10.00)
[2022-03-10 23:57] LABS: Microalbumin Creatinine Ratio <30 mg/g Creat (0-30); Urine Creatinine 40.4 mg/dL (28.0-217.0)
[2022-03-11 01:26] LABS: Erythrocyte Sedimentation Rate 34 mm/Hr (0-20)
[2022-03-11 01:38] LABS: ALT 23 U/L (8-44); AST 18 U/L (13-35); African American GFR (CKD) 147.9 (60.0-200.0); Albumin 4.5 g/dL (3.8-4.9); Albumin/Globulin Ratio 1.88 (1.60-3.17); Alkaline Phosphatase 125 U/L (41-126); BUN/Creat Ratio 18.67 Ratio (12.00-20.00); Blood Urea Nitrogen 11.2 mg/dL (9.0-27.0); Calcium 9.2 mg/dL (8.7-10.3); Chloride 102 mmol/L (96-109); Creatine Kinase 34 U/L (26-186); Globulin 2.4 g/dL (1.6-3.3); Glucose 194 mg/dL (70-110); Non-African American GFR(CKD) 127.6 (60.0-200.0); Potassium 4.2 mmol/L (3.5-5.5); Sodium 137 mmol/L (135-145); Total Bilirubin <0.15 mg/dL (0.30-1.20); Total Protein 6.9 g/dL (6.2-8.2)
== END | disposition home or self-care (01) ==
LOC: LABWHC1 15:36
PROVIDERS: ATTEND Internal Medicine
DX: E87.8 Other disorders of electrolyte and fluid balance, not elsewhere classified (principal); E78.5 Hyperlipidemia, unspecified; E10.9 Type 1 diabetes mellitus without complications; R80.9 Proteinuria, unspecified; E55.9 Vitamin D deficiency, unspecified
CPT/HCPCS: 36415; 80053; 82043; 82306; 82550; 82570; 83036; 84443; 85025; 85652; 86140

== ENCOUNTER → 2022-03-18 | Outpatient (CLI) | payer OTHER ==
[2022-03-18 18:51] LABS: % Iron Saturation 3.88 (12.00-45.00)
[2022-03-18 23:42] LABS: Urine Alcohol Negative (Negative); Urine Barbiturate Negative (Negative); Urine Cocaine Negative (Negative); Urine Methadone Negative (Negative); Urine Opiates Negative (Negative); Urine Phencyclidine Negative (Negative)
== END | disposition home or self-care (01) ==
LOC: LABWHC1 14:19
PROVIDERS: ATTEND Internal Medicine
DX: E10.9 Type 1 diabetes mellitus without complications (principal); D64.9 Anemia, unspecified; F43.10 Post-traumatic stress disorder, unspecified
CPT/HCPCS: 36415; 80306; 82728; 83540; 83550

== ENCOUNTER → 2022-04-17 | Outpatient (CLI) | payer OTHER ==
--- NOTE | 2022-04-17 12:53 | US ---
EXAMINATION TYPE: US pelvic complete DATE OF EXAM: 04/17/2022 COMPARISON: NONE CLINICAL HISTORY: 26-year-old female N92.0 EXCESSIVE AND FREQUENT MENSTRUATION WITH REG. TECHNIQUE: Transabdominal (TA). Transabdominal sonographic images of the pelvis were acquired. Tra nsvaginal sonographic images were medically necessary to better assess the anatomy. Date of LMP: 04-04-22 FINDINGS: EXAM MEASUREMENTS: Uterus: 8.8 x 4.3 x 5.5 cm Endometrial Stripe: 1.1 cm Right Ovary: 3.3 x 1.9 x 2.1 cm Left Ovary: 3.1 x 2.0 x 2.0 cm 1. Uterus: Anteverted and otherwise wnl 2. Endometrium: wnl 3. Right Ovary: A 1.2 cm dominant follicle or functional cyst is present. 4. Left Ovary: Normal follicular change. 5. Bilateral Adnexa: wnl 6. Posterior cul-de-sac: Mild to moderate cul-de-sac free fluid. IMPRESSION: 1. Endometrial stripe measuring 1.1 cm. This should correspond to the secretory phase of the menstrua l cycle. 2. Normal follicular change in the ovaries. 3. Mild to moderate cul-de-sac free fluid likely physiologic.
== END | disposition home or self-care (01) ==
LOC: RADUSWWP 10:19
PROVIDERS: ATTEND Obstetrics & Gynecology
DX: N92.0 Excessive and frequent menstruation with regular cycle (principal)
CPT/HCPCS: 76856

== ENCOUNTER 2022-07-04 14:53 | Emergency (ER) | payer OTHER ==
[2022-07-04 14:56] VITALS: TEMP 98.2
[2022-07-04] MEDS ORDERED: SODIUM CHLORIDE 0.9% 500 ML 500 ML IV ONE (15:27)
[2022-07-04] MEDS ORDERED: SODIUM CHLORIDE 0.9% 1,000 ML IV ONE (15:27)
--- NOTE | 2022-07-04 15:33 | ED ---
General Adult HPI - General Chief complaint: Recheck/Abnormal Lab/Rx Stated complaint: DKA Time Seen by Provider: 07/04/22 15:00 Source: patient, RN notes reviewed, old records reviewed Mode of arrival: ambulatory Limitations: no limitations - History of Present Illness Initial comments: This is a 27-year-old female who presents emergency Department with a past medical history significant for diabetes. Patient states last night her sugar was 700 today was about 350 and she's feeling nauseated and feels as though she is building of some ketones and she wants to come in and get some fluid and see if we can make her feel better. Patient states she has not begun vomiting. Patient denies any fever chills or cough. Patient denies chest pain difficult breathing shortness of breath. Patient denies any abdominal pain. Patient denies any swelling to the legs. Patient denies any dysuria hematuria urinary frequency - Related Data Home Medications Medication Instructions Recorded Confirmed INSULIN LISPRO (For Pump) [humaLOG 0.01 units SQ-PUMP CONTINUOUS 06/04/21 07/04/22 (For Pump)] Cholecalciferol [Vitamin D3 (125 125 mcg PO DAILY 07/04/22 07/04/22 Mcg = 5000 Iu)] Ferrous Sulfate [Feosol] 325 mg PO BID 07/04/22 07/04/22 buPROPion HCL [Wellbutrin XL] 150 mg PO DAILY 07/04/22 07/04/22 metFORMIN HCL ER [Glucophage XR] 500 mg PO BID 07/04/22 07/04/22 Allergies Allergy/AdvReac Type Severity Reaction Status Date / Time No Known Allergies Allergy Verified 07/04/22 16:52 Review of Systems ROS Statement: Those systems with pertinent positive or pertinent negative responses have been documented in the HPI. ROS Other: All systems not noted in ROS Statement are negative. Past Medical History Past Medical History: Diabetes Mellitus Additional Past Medical History / Comment(s): anxiety, panic attacks. per pt's father: when pt younger till about age 15 occ episodes of almost passing out if she moved postions to quickly", lt hand-steam burn from work History of Any Multi-Drug Resistant Organisms: None Reported Past Surgical History: No Surgical Hx Reported Past Anesthesia/Blood Transfusion Reactions: No Reported Reaction Additional Past Anesthesia/Blood Transfusion Reaction / Comment(s): never had general aa Past Psychological History: Anxiety, Depression, Panic Disorder, PTSD Smoking Status: Never smoker Past Alcohol Use History: None Reported Past Drug Use History: None Reported - Past Family History Mother Additional Family Medical History / Comment(s): depression Father Family Medical History: Asthma, COPD, Coronary Artery Disease (CAD), Myocardial Infarction ([place]) Additional Family Medical History / Comment(s): x2 mi's, heart stents General Exam - General Exam Comments Initial Comments: GENERAL: Patient is well-developed and well-nourished. Patient is nontoxic and well- hydrated and is in mild distress. ENT: Neck is soft and supple. No significant lymphadenopathy is noted. Oropharynx is clear. Moist mucous membranes. Neck has full range of motion without eliciting any pain. EYES: The sclera were anicteric and conjunctiva were pink and moist. Extraocular movements were intact and pupils were equal round and reactive to light. Eyelids were unremarkable. PULMONARY: Unlabored respirations. Good breath sounds bilaterally. No audible rales rhonchi or wheezing was noted. CARDIOVASCULAR: Patient is tachycardic at 110 beats a minute ABDOMEN: Soft and nontender with normal bowel sounds. SKIN: Skin is clear with no lesions or rashes and otherwise unremarkable. NEUROLOGIC: Patient is alert and oriented x3. Cranial nerves II through XII are grossly intact. Motor and sensory are also intact. Normal speech, volume and content. Symmetrical smile. MUSCULOSKELETAL: Normal extremities with adequate strength and full range of motion. LYMPHATICS: No significant lymphadenopathy is noted PSYCHIATRIC: Normal psychiatric evaluation. Limitations: no limitations Course Vital Signs 07/04/22 14:54 Temperature 98.2 F Pulse Rate 104 H Respiratory 20 Rate Blood Pressure 130/85 O2 Sat by Pulse 99 Oximetry Medical Decision Making - Medical Decision Making Was pt. sent in by a medical professional or institution (, PA, PHARM SPEC, urgent care, hospital, or assisted...) When possible be specific @ -No Did you speak to anyone other than the patient for history (EMS, parent, family, police, friend...)? What history was obtained from this source @ -No Did you review nursing and triage notes (agree or disagree)? Why? @ -I reviewed and agree with nursing and triage notes Were old charts reviewed (outside hosp., previous admission, EMS record, old EKG, old radiological studies, urgent care reports/EKG's, assisted records)? Report findings @ -No old charts were reviewed Differential Diagnosis (chest pain, altered mental status, abdominal pain women, abdominal pain men, vaginal bleeding, weakness, fever, dyspnea, syncope, headache, dizziness, GI bleed, back pain, seizure, CVA, palpatations, mental health)? @ -Hyperglycemia, DKA, viral syndrome, EKG interpreted by me (3pts min.). @ -As above X-rays interpreted by me (1pt min.). @ -None done CT interpreted by me (1pt min.). @ -None done U/S interpreted by me (1pt. min.). @ -None done What testing was considered but not performed or refused? (CT, X-rays, U/S, labs)? Why? @ -None What meds were considered but not given or refused? Why? @ -None Did you discuss the management of the patient with other professionals (professionals i.e. , PA, PHARM SPEC, lab, RT, psych nurse, forensic social worker, center medical director, teacher, chief business officer, rehabilitation case coordinator)? Give summary @ -No Was smoking cessation discussed for >3mins.? @ -No Was critical care preformed (if so, how long)? @ -No Were there social determinants of health that impacted care today? How? ([place] elessness, low income, unemployed, alcoholism, drug addiction, transportation, low edu. Level, literacy, decrease access to med. care, fdc, rehab)? @ -No Was there de-escalation of care discussed even if they declined (Discuss DNR or withdrawal of care, Hospice)? DNR status @ -No What co-morbidities impacted this encounter? (DM, HTN, Smoking, COPD, CAD, Cancer, CVA, ARF, Chemo, Hep., AIDS, mental health diagnosis, sleep apnea, morbid obesity)? @ -None Was patient admitted / discharged? Hospital course, mention meds given and route, prescriptions, significant lab abnormalities, going to OR and other pertinent info. @ -Patient received a liter and half of fluid and was feeling considerably better. Patient was not at all acidotic or acetone was negative for sugar was 333 but she stated that she will give herself more insulin via her insulin pump. Patient denies any nausea currently. Patient denies any fevers chills cough or difficulty breathing at this time. Patient states she feels good enough to go home Undiagnosed new problem with uncertain prognosis? @ -No Drug Therapy requiring intensive monitoring for toxicity (Heparin, Nitro, Insulin, Cardizem)? @ -No Were any procedures done? @ -No Diagnosis/symptom? @ -Hyperglycemia Acute, or Chronic, or Acute on Chronic? @ -Acute Uncomplicated (without systemic symptoms) or Complicated (systemic symptoms)? @ -Uncomplicated Side effects of treatment? @ -No Exacerbation, Progression, or Severe Exacerbation? @ -No Poses a threat to life or bodily function? How? (Chest pain, [place], [place], pneumonia, PE, COPD, DKA, ARF, appy, cholecystitis, CVA, Diverticulitis, Homicidal, Suicidal, threat to staff... and all critical care pts) @ -No - Lab Data Result diagrams: 07/04/22 16:06 07/04/22 16:06 Lab Results 07/04/22 07/04/22 Range/Units 16:06 16:06 WBC 8.5 (3.8-10.6) k/uL RBC 4.80 (3.80-5.40) m/uL Hgb 11.8 (11.4-16.0) gm/dL Hct 36.6 (34.0-46.0) % MCV 76.2 L (80.0-100.0) fL MCH 24.7 L (25.0-35.0) pg MCHC 32.4 (31.0-37.0) g/dL RDW 13.5 (11.5-15.5) % Plt Count 341 (150-450) k/uL MPV 8.1 Neutrophils % 65 % Lymphocytes % 24 % Monocytes % 6 % Eosinophils % 2 % Basophils % 1 % Neutrophils # 5.5 (1.3-7.7) k/uL Lymphocytes # 2.0 (1.0-4.8) k/uL Monocytes # 0.5 (0-1.0) k/uL Eosinophils # 0.2 (0-0.7) k/uL Basophils # 0.1 (0-0.2) k/uL Sodium 133 L (137-145) mmol/L Potassium 4.4 (3.5-5.1) mmol/L Chloride 101 (98-107) mmol/L Carbon Dioxide 22 (22-30) mmol/L Anion Gap 10 mmol/L BUN 14 (7-17) mg/dL Creatinine 0.48 L (0.52-1.04) mg/dL Est GFR (CKD-EPI)AfAm >90 (>60 ml/min/1.73 sqM) Est GFR (CKD-EPI)NonAf >90 (>60 ml/min/1.73 sqM) Glucose 333 H (74-99) mg/dL Calcium 8.9 (8.4-10.2) mg/dL Total Bilirubin 0.9 (0.2-1.3) mg/dL AST 45 H (14-36) U/L ALT 90 H (4-34) U/L Alkaline Phosphatase 191 H (38-126) U/L Total Protein 7.2 (6.3-8.2) g/dL Albumin 4.4 (3.5-5.0) g/dL Acetone, Qual Negative (Negative) Disposition Clinical Impression: Hyperglycemia Disposition: HOME SELF-CARE Condition: Good Instructions (If sedation given, give patient instructions): Diabetic Hyperglycemia (ED) Is patient prescribed a controlled substance at d/c from ED?: No Referrals: Harpreet Acevedo MD [Primary Care Provider] - 1-2 days Time of Disposition: 17:12
[2022-07-04 16:24] LABS: Basophils # (A) 0.1 k/uL (0-0.2); Basophils % (A) 1 %; Eosinophils # (A) 0.2 k/uL (0-0.7); Eosinophils % (A) 2 %; HCT 36.6 % (34.0-46.0); HGB 11.8 gm/dL (11.4-16.0); Lymphocytes % (A) 24 %; MCH 24.7 pg (25.0-35.0); MCHC 32.4 g/dL (31.0-37.0); MCV 76.2 fL (80.0-100.0); Mean Platelet Volume 8.1; Monocytes # (A) 0.5 k/uL (0-1.0); Monocytes % (A) 6 %; Neutrophils # (A) 5.5 k/uL (1.3-7.7); Neutrophils % (A) 65 %; Platelet Count 341 k/uL (150-450); RDW 13.5 % (11.5-15.5); WBC 8.5 k/uL (3.8-10.6)
[2022-07-04 16:36] LABS: ALT 90 U/L (4-34); AST 45 U/L (14-36); African American GFR (CKD) >90 (>60 ml/min/1.73 sqM); Albumin 4.4 g/dL (3.5-5.0); Alkaline Phosphatase 191 U/L (38-126); Anion Gap 10 mmol/L; Blood Urea Nitrogen 14 mg/dL (7-17); Calcium 8.9 mg/dL (8.4-10.2); Carbon Dioxide 22 mmol/L (22-30); Chloride 101 mmol/L (98-107); Glucose 333 mg/dL (74-99); Non-African American GFR(CKD) >90 (>60 ml/min/1.73 sqM); Potassium 4.4 mmol/L (3.5-5.1); Sodium 133 mmol/L (137-145); Total Bilirubin 0.9 mg/dL (0.2-1.3); Total Protein 7.2 g/dL (6.3-8.2)
[2022-07-04 17:22] VITALS: BP 116/78; PULSE 72; RESP 18
== END 2022-07-04 17:24 | disposition home or self-care (01) ==
LOC: EC 14:53
DX: E11.65 Type 2 diabetes mellitus with hyperglycemia (principal); F41.9 Anxiety disorder, unspecified; F32.A Depression, unspecified; Z79.4 Long term (current) use of insulin; Z79.84 Long term (current) use of oral hypoglycemic drugs
CPT/HCPCS: 36415; 80053; 82009; 85025; 96360; 99283

== ENCOUNTER → 2023-01-27 | Outpatient (CLI) | payer OTHER ==
--- NOTE | 2023-01-27 15:30 | XR ---
EXAMINATION TYPE: XR chest 2V DATE OF EXAM: 01/27/2023 COMPARISON: NONE TECHNIQUE: PA and lateral views submitted. HISTORY: Chest pain FINDINGS: The lungs are clear and there is no pneumothorax, pleural effusion, or focal pneumonia. Heart size normal and no overt failure. Osseous structures demonstrate hypertrophic and degenerative changes of the spine. IMPRESSION: 1. No acute process.
[2023-01-27 20:45] LABS: Basophils # (A) 0.06 X 10*3/uL (0.00-0.10); Basophils % (A) 0.8 %; Eosinophils # (A) 0.09 X 10*3/uL (0.04-0.35); Eosinophils % (A) 1.2 %; HCT 36.9 % (37.2-46.3); HGB 11.3 d/dL (12.0-15.0); Lymphocytes # (A) 2.32 X 10*3/uL (0.90-5.00); MCH 23.3 pg (27.0-32.0); MCHC 30.6 d/dL (32.0-37.0); MCV 76.2 FL (80.0-97.0); Mean Platelet Volume 11.6 FL (9.5-12.2); Monocytes # (A) 0.63 X 10*3/uL (0.20-1.00); Monocytes % (A) 8.7 %; NRBC Per 100 WBC 0 X 10*3/uL (0.00-0.01); Neutrophils # (A) 4.14 X 10*3/uL (1.80-7.70); Platelet Count 398 X 10*3/uL (140-440); RBC 4.84 X 10*6/uL (4.10-5.20); RDW 13.6 % (11.5-14.5); WBC 7.26 X 10*3/uL (4.50-10.00)
[2023-01-27 21:01] LABS: % Iron Saturation 6.31 (12.00-45.00); ALT 21 U/L (8-44); AST 20 U/L (13-35); BUN/Creat Ratio 27.83 Ratio (12.00-20.00); Blood Urea Nitrogen 16.7 mg/dL (9.0-27.0); Calcium 9.6 mg/dL (8.7-10.3); Chloride 105 mmol/L (96-109); Ferritin 9.9 ng/mL (10.0-291.0); Glucose 59 mg/dL (70-110); Iron 28 UG/DL (50-170); Potassium 3.7 mmol/L (3.5-5.5); Sodium 140 mmol/L (135-145); Total Iron Binding Capacity 444 UG/DL (228-460)
[2023-01-27 21:23] LABS: Erythrocyte Sedimentation Rate 30 mm/Hr (0-20)
== END | disposition home or self-care (01) ==
LOC: LABWHC1 14:42
PROVIDERS: ATTEND Internal Medicine
DX: E55.9 Vitamin D deficiency, unspecified (principal); M94.0 Chondrocostal junction syndrome [Tietze]; K76.0 Fatty (change of) liver, not elsewhere classified; E61.1 Iron deficiency; R07.9 Chest pain, unspecified
CPT/HCPCS: 36415; 71046; 80048; 82306; 82728; 83540; 83550; 84450; 84460; 84484; 85025; 85652; 86140

== ENCOUNTER 2023-03-20 10:38 | Emergency (ER) | payer OTHER ==
[2023-03-20 10:50] LABS: Glucose,Whole Blood 294 mg/dL (70-110)
[2023-03-20 11:04] VITALS: RESP 18
[2023-03-20] MEDS ORDERED: SODIUM CHLORIDE 0.9% 2,000 ML IV ONE (11:05)
--- NOTE | 2023-03-20 11:08 | ED ---
General Adult HPI - General Chief complaint: Recheck/Abnormal Lab/Rx Stated complaint: Hyperglycemia Time Seen by Provider: 03/20/23 10:52 Source: patient, RN notes reviewed Mode of arrival: ambulatory - History of Present Illness Initial comments: 27-year-old female presents to the emergency department with chief complaint of hyperglycemia. She states that over the last day she has noticed her blood sugars have been running around 300-400. She is on a continuous insulin pump. She states that she gave herself an insulin bolus this morning of 5 units. She has not eaten anything this morning. She admits to nausea without vomiting, frequent urination, excessive thirst. She denies fever, chills, abdominal pain, urinary frequency, dysuria, cough, congestion. - Related Data Home Medications Medication Instructions Recorded Confirmed INSULIN LISPRO (For Pump) [humaLOG 0.01 units SQ-PUMP CONTINUOUS 06/04/21 07/04/22 (For Pump)] Cholecalciferol [Vitamin D3 (125 125 mcg PO DAILY 07/04/22 07/04/22 Mcg = 5000 Iu)] Ferrous Sulfate [Feosol] 325 mg PO BID 07/04/22 07/04/22 buPROPion HCL [Wellbutrin XL] 150 mg PO DAILY 07/04/22 07/04/22 metFORMIN HCL ER [Glucophage XR] 500 mg PO BID 07/04/22 07/04/22 Allergies Allergy/AdvReac Type Severity Reaction Status Date / Time No Known Allergies Allergy Verified 03/20/23 10:47 Review of Systems ROS Statement: Those systems with pertinent positive or pertinent negative responses have been documented in the HPI. ROS Other: All systems not noted in ROS Statement are negative. Past Medical History Past Medical History: Diabetes Mellitus Additional Past Medical History / Comment(s): anxiety, panic attacks. per pt's father: when pt younger till about age 15 occ episodes of almost passing out if she moved postions to quickly", lt hand-steam burn from work History of Any Multi-Drug Resistant Organisms: None Reported Past Surgical History: No Surgical Hx Reported Past Anesthesia/Blood Transfusion Reactions: No Reported Reaction Additional Past Anesthesia/Blood Transfusion Reaction / Comment(s): never had general aa Past Psychological History: Anxiety, Depression, Panic Disorder, PTSD Smoking Status: Never smoker Past Alcohol Use History: None Reported Past Drug Use History: None Reported - Past Family History Mother Additional Family Medical History / Comment(s): depression Father Family Medical History: Asthma, COPD, Coronary Artery Disease (CAD), Myocardial Infarction (MD) Additional Family Medical History / Comment(s): x2 mi's, heart stents General Exam Limitations: no limitations General appearance: alert, in no apparent distress Head exam: Present: atraumatic, normocephalic, normal inspection Eye exam: Present: normal appearance, PERRL, EOMI. Absent: scleral icterus, conjunctival injection, periorbital swelling ENT exam: Present: mucous membranes dry Neck exam: Present: normal inspection. Absent: tenderness, meningismus, lymphadenopathy Respiratory exam: Present: normal lung sounds bilaterally. Absent: respiratory distress, wheezes, rales, rhonchi, stridor Cardiovascular Exam: Present: regular rate, normal rhythm, normal heart sounds. Absent: systolic murmur, diastolic murmur, rubs, gallop, clicks GI/Abdominal exam: Present: soft, normal bowel sounds. Absent: distended, tenderness, guarding, rebound, rigid Extremities exam: Present: normal inspection, full ROM, normal capillary refill. Absent: tenderness, pedal edema, joint swelling, calf tenderness Back exam: Present: normal inspection Neurological exam: Present: alert, oriented X3 Psychiatric exam: Present: normal affect, normal mood Skin exam: Present: warm, dry, intact, normal color. Absent: rash Course Vital Signs 03/20/23 03/20/23 10:43 13:57 Temperature 98.7 F 98.6 F Pulse Rate 60 74 Respiratory 18 18 Rate Blood Pressure 127/86 129/81 O2 Sat by Pulse 99 98 Oximetry Medical Decision Making - Medical Decision Making Was pt. sent in by a medical professional or institution (, PA, [employer], urgent care, hospital, or assisted...) When possible be specific @ -No Did you speak to anyone other than the patient for history (EMS, parent, family, police, friend...)? What history was obtained from this source @ -No Did you review nursing and triage notes (agree or disagree)? Why? @ -I reviewed and agree with nursing and triage notes Were old charts reviewed (outside hosp., previous admission, EMS record, old EKG, old radiological studies, urgent care reports/EKG's, assisted records)? Report findings @ -No old charts were reviewed Differential Diagnosis (chest pain, altered mental status, abdominal pain women, abdominal pain men, vaginal bleeding, weakness, fever, dyspnea, syncope, headache, dizziness, GI bleed, back pain, seizure, CVA, palpatations, mental health, musculoskeletal)? @ -DKA, HHS, hyperglycemia, viral infection, UTI, this list is not all inclusive EKG interpreted by me (3pts min.). @ -none] X-rays interpreted by me (1pt min.). @ -None done CT interpreted by me (1pt min.). @ -None done U/S interpreted by me (1pt. min.). @ -None done What testing was considered but not performed or refused? (CT, X-rays, U/S, labs)? Why? @ -None What meds were considered but not given or refused? Why? @ -None Did you discuss the management of the patient with other professionals (professionals i.e. Dr., PA, [employer], lab, RT, psych nurse, social services specialist, kiln firer, teacher, hospital chief executive officer, continuous pillowcase cutter)? Give summary @ -No Was smoking cessation discussed for >3mins.? @ -No Was critical care preformed (if so, how long)? @ -No Were there social determinants of health that impacted care today? How? (Homelessness, low income, unemployed, alcoholism, drug addiction, transportation, low edu. Level, literacy, decrease access to med. care, usp, rehab)? @ -No Was there de-escalation of care discussed even if they declined (Discuss DNR or withdrawal of care, Hospice)? DNR status @ -No What co-morbidities impacted this encounter? (DM, HTN, Smoking, COPD, CAD, Cancer, CVA, ARF, Chemo, Hep., AIDS, mental health diagnosis, sleep apnea, morbid obesity)? @ -DM Was patient admitted / discharged? Hospital course, mention meds given and route, prescriptions, significant lab abnormalities, going to OR and other pertinent info. @ -Discharged. Well-appearing 27-year-old female patient presented to the e mergency department for chief complaint of hyperglycemia for the past 13 hours. She is a type 1 diabetic and has an insulin pump. She states that she gave herself 5 units of insulin this morning which temporarily brought her blood sugar down but states that it spiked again. She states that it has been in the 300-400s. Denies recent illness. She denies fever, chills, abdominal pain, vomiting. Laboratory studies obtained which show CBC essentially unremarkable, CMP shows Na 136, K 4.6, glucose 278; Accucheck at arrival showed blood glucose 294; UA shows large blood and she admits to being her menstrual cycle, negative ketones in urine; serum acetone negative. Patient was given 2 L normal saline, glucose rechecked following this which was 235. Patient reports that she is feeling better and would like to be discharged home. Patient advised on findings and follow-up with her primary care provider. Patient stable at time of discharge. Case discussed with Dr. Evangelista Undiagnosed new problem with uncertain prognosis? @ -No Drug Therapy requiring intensive monitoring for toxicity (Heparin, Nitro, Insulin, Cardizem)? @ -No Were any procedures done? @ -No Diagnosis/symptom? @ -hyperglycemia Acute, or Chronic, or Acute on Chronic? @ -acute Uncomplicated (without systemic symptoms) or Complicated (systemic symptoms)? @ -uncomplicated Side effects of treatment? @ -No Exacerbation, Progression, or Severe Exacerbation? @ -No Poses a threat to life or bodily function? How? (Chest pain, USA, MD, pneumonia, PE, COPD, DKA, ARF, appy, cholecystitis, CVA, Diverticulitis, Homicidal, Suicidal, threat to staff... and all critical care pts) @ -No - Lab Data Result diagrams: 03/20/23 11:27 03/20/23 11:27 Lab Results 03/20/23 03/20/23 03/20/23 Range/Units 10:48 11:27 11:27 WBC 7.8 (3.8-10.6) k/uL RBC 4.58 (3.80-5.40) m/uL Hgb 11.6 (11.4-16.0) gm/dL Hct 36.6 (34.0-46.0) % MCV 80.0 (80.0-100.0) fL MCH 25.4 (25.0-35.0) pg MCHC 31.7 (31.0-37.0) g/dL RDW 15.9 H (11.5-15.5) % Plt Count 297 (150-450) k/uL MPV 8.6 Neutrophils % 68 % Lymphocytes % 22 % Monocytes % 6 % Eosinophils % 2 % Basophils % 0 % Neutrophils # 5.3 (1.3-7.7) k/uL Lymphocytes # 1.7 (1.0-4.8) k/uL Monocytes # 0.5 (0-1.0) k/uL Eosinophils # 0.1 (0-0.7) k/uL Basophils # 0.0 (0-0.2) k/uL Hypochromasia Moderate Sodium (137-145) mmol/L Potassium (3.5-5.1) mmol/L Chloride (98-107) mmol/L Carbon Dioxide (22-30) mmol/L Anion Gap mmol/L BUN (7-17) mg/dL Creatinine (0.52-1.04) mg/dL Est GFR (CKD-EPI)AfAm (>60 ml/min/1.73 sqM) Est GFR (CKD-EPI)NonAf (>60 ml/min/1.73 sqM) Glucose (74-99) mg/dL POC Glucose (mg/dL) 294 H (70-110) mg/dL POC Glu Technical Laboratory Asst ID Monica Brooke Calcium (8.4-10.2) mg/dL Total Bilirubin (0.2-1.3) mg/dL AST (14-36) U/L ALT (4-34) U/L Alkaline Phosphatase (38-126) U/L Total Protein (6.3-8.2) g/dL Albumin (3.5-5.0) g/dL Urine Color Light [place] Urine Appearance Clear (Clear) Urine pH 6.5 (5.0-8.0) Ur Specific [place] 1.033 (1.001-1.035) Urine Protein Trace H (Negative) Urine Glucose (UA) 4+ H (Negative) Urine Ketones Negative (Negative) Urine Blood Large H (Negative) Urine Nitrite Negative (Negative) Urine Bilirubin Negative (Negative) Urine Urobilinogen <2.0 (<2.0) mg/dL Ur Leukocyte Esterase Negative (Negative) Urine RBC >182 H (0-5) /hpf Urine WBC 1 (0-5) /hpf Acetone, Qual (Negative) 03/20/23 03/20/23 Range/Units 11:27 13:15 WBC (3.8-10.6) k/uL RBC (3.80-5.40) m/uL Hgb (11.4-16.0) gm/dL Hct (34.0-46.0) % MCV (80.0-100.0) fL MCH (25.0-35.0) pg MCHC (31.0-37.0) g/dL RDW (11.5-15.5) % Plt Count (150-450) k/uL MPV Neutrophils % % Lymphocytes % % Monocytes % % Eosinophils % % Basophils % % Neutrophils # (1.3-7.7) k/uL Lymphocytes # (1.0-4.8) k/uL Monocytes # (0-1.0) k/uL Eosinophils # (0-0.7) k/uL Basophils # (0-0.2) k/uL Hypochromasia Sodium 136 L (137-145) mmol/L Potassium 4.6 (3.5-5.1) mmol/L Chloride 104 (98-107) mmol/L Carbon Dioxide 22 (22-30) mmol/L Anion Gap 10 mmol/L BUN 11 (7-17) mg/dL Creatinine 0.53 (0.52-1.04) mg/dL Est GFR (CKD-EPI)AfAm >90 (>60 ml/min/1.73 sqM) Est GFR (CKD-EPI)NonAf >90 (>60 ml/min/1.73 sqM) Glucose 278 H (74-99) mg/dL POC Glucose (mg/dL) 235 H (70-110) mg/dL POC Glu Technical Laboratory Asst ID Murtaza Celaya Calcium 8.8 (8.4-10.2) mg/dL Total Bilirubin 0.2 (0.2-1.3) mg/dL AST 56 H (14-36) U/L ALT 43 H (4-34) U/L Alkaline Phosphatase 92 (38-126) U/L Total Protein 6.4 (6.3-8.2) g/dL Albumin 3.8 (3.5-5.0) g/dL Urine Color Urine Appearance (Clear) Urine pH (5.0-8.0) Ur Specific [place] (1.001-1.035) Urine Protein (Negative) Urine Glucose (UA) (Negative) Urine Ketones (Negative) Urine Blood (Negative) Urine Nitrite (Negative) Urine Bilirubin (Negative) Urine Urobilinogen (<2.0) mg/dL Ur Leukocyte Esterase (Negative) Urine RBC (0-5) /hpf Urine WBC (0-5) /hpf Acetone, Qual Negative (Negative) Disposition Clinical Impression: Hyperglycemia Disposition: HOME SELF-CARE Condition: Stable Additional Instructions: Please follow up with your primary care provider. Return to the emergency department for new or worsening symptoms. Is patient prescribed a controlled substance at d/c from ED?: No Referrals: Harpreet Acevedo MD [Primary Care Provider] - 1-2 days
[2023-03-20 12:05] LABS: Basophils % (A) 0 %; Eosinophils # (A) 0.1 k/uL (0-0.7); Eosinophils % (A) 2 %; HCT 36.6 % (34.0-46.0); HGB 11.6 gm/dL (11.4-16.0); Hypochromasia Moderate; Lymphocytes # (A) 1.7 k/uL (1.0-4.8); Lymphocytes % (A) 22 %; MCH 25.4 pg (25.0-35.0); MCHC 31.7 g/dL (31.0-37.0); Mean Platelet Volume 8.6; Monocytes # (A) 0.5 k/uL (0-1.0); Monocytes % (A) 6 %; Neutrophils # (A) 5.3 k/uL (1.3-7.7); Neutrophils % (A) 68 %; Platelet Count 297 k/uL (150-450); RBC 4.58 m/uL (3.80-5.40); RDW 15.9 % (11.5-15.5); WBC 7.8 k/uL (3.8-10.6)
[2023-03-20 12:32] LABS: ALT 43 U/L (4-34); AST 56 U/L (14-36); African American GFR (CKD) >90 (>60 ml/min/1.73 sqM); Albumin 3.8 g/dL (3.5-5.0); Alkaline Phosphatase 92 U/L (38-126); Anion Gap 10 mmol/L; Blood Urea Nitrogen 11 mg/dL (7-17); Calcium 8.8 mg/dL (8.4-10.2); Carbon Dioxide 22 mmol/L (22-30); Chloride 104 mmol/L (98-107); Glucose 278 mg/dL (74-99); Non-African American GFR(CKD) >90 (>60 ml/min/1.73 sqM); Potassium 4.6 mmol/L (3.5-5.1); Sodium 136 mmol/L (137-145); Total Bilirubin 0.2 mg/dL (0.2-1.3); Total Protein 6.4 g/dL (6.3-8.2)
[2023-03-20 12:40] LABS: Appearance,Urine Clear (Clear); Bilirubin,Urine Negative (Negative); Blood,Urine Large (Negative); Color,Urine Light Orange; Glucose,Urine (UA) 4+ (Negative); Ketones,Urine Negative (Negative); Leukocyte Esterase,Urine Negative (Negative); Nitrite,Urine Negative (Negative); PH, Urine 6.5 (5.0-8.0); Protein,Urine Trace (Negative); RBC,Urine >182 /hpf (0-5); Specific Gravity,Urine 1.033 (1.001-1.035); Urobilinogen,Urine <2.0 mg/dL (<2.0); WBC,Urine 1 /hpf (0-5)
[2023-03-20 13:17] LABS: Glucose,Whole Blood 235 mg/dL (70-110)
[2023-03-20 14:04] VITALS: BP 129/81; PULSE 74; TEMP 98.6
== END 2023-03-20 14:02 | disposition home or self-care (01) ==
LOC: EC 10:38
DX: E11.65 Type 2 diabetes mellitus with hyperglycemia (principal); F41.9 Anxiety disorder, unspecified; F32.A Depression, unspecified; Z79.899 Other long term (current) drug therapy; Z79.4 Long term (current) use of insulin; Z79.84 Long term (current) use of oral hypoglycemic drugs
CPT/HCPCS: 36415; 80053; 81001; 82009; 85025; 96360; 96361; 99283

== ENCOUNTER → 2024-03-07 | Outpatient (CLI) | payer OTHER ==
[2024-03-07 20:45] LABS: Basophils # (A) 0.07 X 10*3/uL (0.00-0.10); Basophils % (A) 0.7 %; Eosinophils # (A) 0.14 X 10*3/uL (0.04-0.35); Eosinophils % (A) 1.5 %; HCT 36.2 % (37.2-46.3); HGB 11.5 g/dL (12.0-15.0); Lymphocytes # (A) 2.73 X 10*3/uL (0.90-5.00); MCH 25.4 pg (27.0-32.0); MCHC 31.8 g/dL (32.0-37.0); MCV 80.1 FL (80.0-97.0); Mean Platelet Volume 10.9 FL (9.5-12.2); Monocytes # (A) 0.69 X 10*3/uL (0.20-1.00); Monocytes % (A) 7.3 %; NRBC Per 100 WBC 0 X 10*3/uL (0.00-0.01); Neutrophils # (A) 5.76 X 10*3/uL (1.80-7.70); Neutrophils % (A) 61.2 %; Platelet Count 401 X 10*3/uL (140-440); RBC 4.52 X 10*6/uL (4.10-5.20); RDW 13.3 % (11.5-14.5); WBC 9.42 X 10*3/uL (4.50-10.00)
[2024-03-07 20:49] LABS: Appearance,Urine Turbid (Clear); Bilirubin,Urine Negative (Negative); Blood,Urine Negative (Negative); Color,Urine Dark Yellow (Yellow); Ketones,Urine Trace (Negative); Nitrite,Urine Negative (Negative); PH, Urine 5.5; Specific Gravity,Urine 1.026 (1.001-1.030)
[2024-03-07 21:18] LABS: Bacteria,Urine Trace (None Seen)
[2024-03-07 21:19] LABS: C Reactive Protein <0.30 mg/dL (0.00-0.80); Creatine Kinase 45 U/L (26-186)
[2024-03-07 21:20] LABS: % Iron Saturation 9.05 (12.00-45.00); ALT 19 U/L (8-44); AST 20 U/L (13-35); Albumin 4.4 g/dL (3.8-4.9); Albumin/Globulin Ratio 1.76 Ratio (1.60-3.17); Alkaline Phosphatase 89 U/L (41-126); BUN/Creat Ratio 27.14 Ratio (12.00-20.00); Calcium 9.6 mg/dL (8.7-10.3); Carbon Dioxide 25.9 mmol/L (21.6-31.8); Chloride 103 mmol/L (96-109); Ferritin 6.8 ng/mL (10.0-291.0); Globulin 2.5 g/dL (1.6-3.3); Glucose 80 mg/dL (70-110); Iron 36 UG/DL (50-170); LDL Cholesterol,Calculated 99.8 mg/dL (0.0-131.0); Magnesium 1.9 mg/dL (1.5-2.4); Phosphorus 4.1 mg/dL (2.4-5.1); Potassium 4.1 mmol/L (3.5-5.5); Sodium 140 mmol/L (135-145); Total Bilirubin 0.4 mg/dL (0.3-1.2); Total Iron Binding Capacity 398 UG/DL (228-460); Total Protein 6.9 g/dL (6.2-8.2); Uric Acid 3.5 mg/dL (2.9-7.7); VLDL Calculation 13.56 mg/dL (5.00-40.00)
[2024-03-07 21:30] LABS: Erythrocyte Sedimentation Rate 13 mm/Hr (0-20)
== END | disposition home or self-care (01) ==
LOC: LABWHC1 14:47
PROVIDERS: ATTEND Internal Medicine
DX: D64.9 Anemia, unspecified (principal); E87.8 Other disorders of electrolyte and fluid balance, not elsewhere classified; N18.30 Chronic kidney disease, stage 3 unspecified; E78.5 Hyperlipidemia, unspecified; E11.65 Type 2 diabetes mellitus with hyperglycemia; N39.0 Urinary tract infection, site not specified; R80.9 Proteinuria, unspecified; Z00.00 Encounter for general adult medical examination without abnormal findings
CPT/HCPCS: 36415; 80053; 80061; 81001; 82043; 82306; 82550; 82570; 82728; 83036; 83540; 83550; 83735; 83970; 84100; 84443; 84550; 85025; 85652; 86140; 87086

== ENCOUNTER → 2024-08-31 | Outpatient (CLI) | payer OTHER ==
[2024-08-31 15:31] LABS: ALT 12 U/L (8-44); AST 14 U/L (13-35); Albumin 4.2 g/dL (3.8-4.9); Albumin/Globulin Ratio 1.75 Ratio (1.60-3.17); Alkaline Phosphatase 87 U/L (41-126); BUN/Creat Ratio 19.29 Ratio (12.00-20.00); Blood Urea Nitrogen 13.5 mg/dL (9.0-27.0); Calcium 8.9 mg/dL (8.7-10.3); Carbon Dioxide 23.2 mmol/L (21.6-31.8); Chloride 105 mmol/L (96-109); Globulin 2.4 g/dL (1.6-3.3); Glucose 312 mg/dL (70-110); Potassium 4.7 mmol/L (3.5-5.5); Sodium 137 mmol/L (135-145); Total Bilirubin 0.3 mg/dL (0.3-1.2); Total Protein 6.6 g/dL (6.2-8.2)
[2024-08-31 18:57] LABS: Chol/HDL Ratio 2.78 Ratio; LDL Cholesterol,Calculated 94.9 mg/dL (0.0-131.0); VLDL Calculation 11.42 mg/dL (5.00-40.00)
[2024-08-31 19:47] LABS: Microalbumin Creatinine Ratio <15 mg/g Cr (0-30); Urine Creatinine 78.4 mg/dL (28.0-217.0)
== END | disposition home or self-care (01) ==
LOC: LABWHC1 10:02
PROVIDERS: ATTEND Internal Medicine
DX: E10.65 Type 1 diabetes mellitus with hyperglycemia (principal); E55.9 Vitamin D deficiency, unspecified
CPT/HCPCS: 36415; 80053; 80061; 82043; 82306; 82533; 82570; 82607; 82746; 83036

== ENCOUNTER → 2024-11-29 | Outpatient (CLI) | payer OTHER ==
[2024-11-30 01:56] LABS: Basophils # (A) 0.06 X 10*3/uL (0.00-0.10); Basophils % (A) 0.6 %; Eosinophils # (A) 0.11 X 10*3/uL (0.04-0.35); Eosinophils % (A) 1.1 %; HCT 34.3 % (37.2-46.3); HGB 11.3 g/dL (12.0-15.0); Immature Grans, Automated 0.10 %; Lymphocytes # (A) 2.79 X 10*3/uL (0.90-5.00); Lymphocytes % (A) 27.0 %; MCH 27.4 pg (27.0-32.0); MCHC 32.9 g/dL (32.0-37.0); MCV 83.3 FL (80.0-97.0); Monocytes # (A) 0.84 X 10*3/uL (0.20-1.00); Monocytes % (A) 8.1 %; NRBC Per 100 WBC 0 X 10*3/uL (0.00-0.01); Neutrophils # (A) 6.52 X 10*3/uL (1.80-7.70); Neutrophils % (A) 63.1 %; Platelet Count 385 X 10*3/uL (140-440); RBC 4.12 X 10*6/uL (4.10-5.20); RDW 14.5 % (11.5-14.5); WBC 10.33 X 10*3/uL (4.50-10.00)
[2024-11-30 02:49] LABS: Ferritin 12.7 ng/mL (10.0-291.0); Iron 82.0 UG/DL (50-170); Total Iron Binding Capacity 416.0 UG/DL (228-460)
== END | disposition home or self-care (01) ==
LOC: LABWHC1 16:28
PROVIDERS: ATTEND Internal Medicine
DX: N92.0 Excessive and frequent menstruation with regular cycle (principal); D50.9 Iron deficiency anemia, unspecified
CPT/HCPCS: 36415; 82728; 83540; 83550; 85025